=== PATIENT | female | born 1960 | race Caucasian/White ===

== ENCOUNTER → 2016-10-22 | Outpatient (CLI) | payer BC ==
[~2016-10-22] MED LIST: ALBUTEROL SULFAT3 M3 IH; ALLEGRA 60MG TA60 MG PO; ALLEGRA60 M1 PO; ALLEGRA60 MG PO; ATIVAN 0.50.5 MG/TAB PO; BROVANA15 MCG/2 M IH; COMPAZINE 110 MG/TAB PO; COUMADIN; COUMADIN 22.5 MG/TAB PO; COUMADIN2.5 MG PO; DETROL; DETROL LA4 PO; FLEXERIL10 MG PO; KLOR-CON M1010 MEQ PO; LORTAB 5/500 501 TAB PO; NEXIUM 40MG40 MG PO; OXYGEN; POTASSIUM AC PO; PREDNISONE20 MG PO; PREMARIN .3MG0.3 MG PO; SINGULAIR 110 MG/TAB PO; XARELTO15 MG PO; ZYLOPRIM 300MG300 MG PO
== END ==
LOC: MC.RAD 09:33
DX: Z12.31 Encounter for screening mammogram for malignant neoplasm of breast (principal)

== ENCOUNTER → 2017-11-14 | Outpatient (CLI) | payer BC | LOC: MC.RAD 08:40 | DX: Z12.31 Encounter for screening mammogram for malignant neoplasm of breast (principal) ==

== ENCOUNTER → 2018-12-01 | Outpatient (CLI) | payer BC | LOC: MC.RAD 11-27 09:30 | DX: Z12.31 Encounter for screening mammogram for malignant neoplasm of breast (principal) ==

== ENCOUNTER → 2019-12-03 | Outpatient (CLI) | payer BC | LOC: MC.RAD 09:27 | DX: Z12.31 Encounter for screening mammogram for malignant neoplasm of breast (principal) ==

== ENCOUNTER 2020-12-03 17:57 | Inpatient (IN) | payer SELFPAY ==
[~2020-12-03] VITALS: Ht 152.4 cm; Wt 56.2 kg
[2020-12-03 18:48] LABS: HEMATOCRIT 44.6 % (37.0-47.0); HEMOGLOBIN 14.9 g/dl (12.5-16.0); MEAN CELL VOLUME 87 fl (80.0-100.0); MEAN CORPUSCULAR HEMOGLOBIN 29 pg (27.0-31.0); MEAN CORPUSCULAR HGB CONC 33 g/dl (33.0-37.0); MEAN PLATELET VOLUME 10.8 fl (7.4-10.4); PLATELET COUNT 166 K/mm3 (130-400); RED BLOOD COUNT 5.11 M/mm3 (4.10-5.30); REDCELL DISTRIBUTION WIDTH-CV 12.6 % (11.5-14.5)
[2020-12-03 18:55] LABS: PROTHROMBIN TIME 33.5 SECONDS (9.7-12.8)
[2020-12-03 19:07] LABS: ALBUMIN 3.3 gm/dL (3.4-4.8); BILIRUBIN,TOTAL 1.7 mg/dL (0.2-1.2); CALCIUM 10.4 mg/dL (8.4-10.2); CREATININE, serum 0.84 mg/dL (0.57-1.11); TOTAL PROTEIN 7.9 gm/dL (6.2-8.1)
[2020-12-03 19:13] LABS: BAND 7 % (0-10); LYMPHOCYTE 7 % (20.0-51.0); NEUTROPHILS 82 % (42.0-75.2); TROPONIN-I 0.013 ng/mL (0.00-0.033)
[2020-12-03 19:16] LABS: PLATELET ESTIMATE NORMAL (NORMAL)
[2020-12-03 19:21] LABS: ARTERIAL BLD GAS O2 SATURATION 96.3 % (92-100); ARTERIAL BLD GAS TCO2 CT 31.3; ARTERIAL BLOOD GAS BASE EXCESS 4.2 (-2-2); ARTERIAL BLOOD GAS HCO3 29.8 meq/L (22-26); ARTERIAL BLOOD GAS PCO2 48.2 mmHg (35-45); ARTERIAL BLOOD GAS PO2 87.9 mmHg (80-100); ARTERIAL BLOOD GAS pH 7.41 (7.35-7.45)
[2020-12-03 20:53] LABS: COLLECTION METHOD CLEAN CATCH
[2020-12-03 21:01] LABS: MUCOUS Present /lpf; PH 6 (5-8); SQUAMOUS EPITHELIAL 0-2 /hpf; URINE APPEARANCE Clear; URINE BACTERIA None Seen /hpf; URINE BILIRUBIN Negative (NEGATIVE); URINE BLOOD 3+ (NEGATIVE); URINE COLOR Yellow; URINE GLUCOSE Negative (NEGATIVE); URINE KETONE Negative (NEGATIVE); URINE LEUKOCYTE ESTERASE Negative (NEGATIVE); URINE NITRATE Negative (NEGATIVE); URINE PROTEIN(semi-quant) 3+ (NEGATIVE); URINE RBC >50 /hpf; URINE UROBILINOGEN Negative (NEGATIVE)
[2020-12-03] MEDS ORDERED: PROVENTIL0.09 MG/A1 IH (22:59)
[2020-12-03] MEDS ORDERED: RT ADVAIR 228 DISKUS IH (23:00)
[2020-12-03] MEDS ORDERED: ALBUTEROL0.83 MG/ML IH (23:01)
[2020-12-03] MEDS ORDERED: COUMADIN 2MG2 MG/TAB PO (23:01)
[2020-12-03] MEDS ORDERED: COUMADIN 22.5 MG/TAB PO (23:02)
[2020-12-04] VITALS (14 sets, daily range): BP systolic 110–147; BP diastolic 55–84; PULSE 63–171; TEMP 97.8–98.2
--- NOTE | 2020-12-04 01:07 | NUR ---
REPORT RECEIVED FROM MIMI CAMPOS IN ED. PT ADMITTED TO MEDICAL FLOOR. DENIES ANY PAIN, C/O COUGH. PT OTHERWISE STABLE. NO FURTHER CONCERNS.
--- NOTE | 2020-12-04 01:18 | NUR ---
PT AMBULATED TO THE BATHROOM OFF OF THE 1L NC. PT TACHYCARDIC, WELL HYPOXIC; UPON RETURN TO BED, O2 SATS WERE 79%, INITIALLY TURNED O2 UP TO 5L TO ASSIST IN RECOVERY, PT IMMEDIATELY RECOVERED TO 98% O2 TITRATED DOWN TO 2L AND PATIENT SATURATIONS ARE AT 94%. CALL FROM TELEMETRY DURING AMBULATION TO BATHROOM STATED THAT HR WAS IN THE 140'S. NO OTHER CONCERNS AT THIS TIME. THIS RN WAS AT BEDSIDE DURING EPISODE, AND PATIENT DENIES ANY PAIN, JUST THE SHORTNESS OF BREATH.
--- NOTE | 2020-12-04 02:21 | NUR ---
PT SUSTAINING HEART RATES OF 160'S. JOHNSON NOTIFIED. ORDERED EKG STAT, TOLD PT TO BEAR DOWN WHILE HOLDING BREATH.
--- NOTE | 2020-12-04 06:15 | NUR ---
0235: TELEMETRY CALLED TO INFORM RN OF SUSTAINED HR IN THE 160'S. CALLED YEE ORNELAS. JOHNSON ORDERED STAT EKG. 0240: YEE ORNELAS ORDERED 10MG CARDIZEM BOLUS WELL A CARDIZEM GTT TO BE BROUGHT UP BY CABINET ABRASIVE SANDBLASTER MIMI DUQUE. 0248: CARDIZEM BOLUS GIVEN, CARDIZEM GTT STARTED AT 5MG/HR. 0259: BP 117/81 HR 169. YEE ORNELAS NOTIFIED, CARDIZEM BOLUS OF 10MG ORDERED, GTT ORDERED TO INCREASE TO 10MG/HR. 0330: BP 111/74 HR 169. YEE ORNELAS NOTIFIED OF SUSTATINED HR, SHE ORDERED CARDIZEM GTT INCREASE TO 15MG/HR. 0345: BP 121/70 HR 169 SUSTAINING; 0.5MG DIGOXIN ORDERED PER YEE ORNELAS. 0407: 0.5MG DIGOXIN GIVEN. 0415: 147/84 HR 165 REMAINED SUSTAINED. 0430: YEE ORNELAS ORDERED LOPRESSOR 5MG X3. 0440: INITIAL DOSE OF LOPRESSOR GIVEN. 0445: 2ND DOSE OF LOPRESSOR GIVEN. 0453: 3RD DOSE OF LOPRESSOR GIVEN. 0540: PT CONVERTED BACK TO NSR. 0615: 130/74 HR 81
[2020-12-04 06:44] LABS: HEMATOCRIT 41.2 % (37.0-47.0); MEAN CELL VOLUME 87 fl (80.0-100.0); MEAN CORPUSCULAR HEMOGLOBIN 30 pg (27.0-31.0); MEAN CORPUSCULAR HGB CONC 34 g/dl (33.0-37.0); MEAN PLATELET VOLUME 10.9 fl (7.4-10.4); PLATELET COUNT 180 K/mm3 (130-400); RED BLOOD COUNT 4.72 M/mm3 (4.10-5.30); REDCELL DISTRIBUTION WIDTH-CV 12.6 % (11.5-14.5)
[2020-12-04 07:14] LABS: CALCIUM 9.5 mg/dL (8.4-10.2); CREATININE, serum 0.72 mg/dL (0.57-1.11); MAGNESIUM 2.6 mg/dL (1.6-2.6); POTASSIUM 4.7 mmol/L (3.5-4.5)
[2020-12-04 07:48] LABS: INR 2.6 (0.8-3.0); PROTHROMBIN TIME 29.1 SECONDS (9.7-12.8)
[2020-12-04 07:55] LABS: TSH w REFLEX 0.22 uIU/mL (0.350-4.940)
[2020-12-04 08:18] LABS: BAND 19 % (0-10); LYMPHOCYTE 4 % (20.0-51.0); NEUTROPHILS 73 % (42.0-75.2); PLATELET ESTIMATE NORMAL (NORMAL)
--- NOTE | 2020-12-04 10:23 | NUR ---
Pt assessment complete. Pt is sitting up in bed upon entry, she is A/O x4. Her breathing is even and unlabored on 2L O2. She denies any increased SOB or productive cough. Pt denies any chest pain or palpitations. Discussed POC and heart rhythm with patient and her , pt back in Aflutter HR controlled. Physicians notified. Cardizem infusing per protocol. No needs at this time. Call light within reach.
--- NOTE | 2020-12-04 10:54 | NUR ---
GABRIEL met with the patient and her , Finesse (ph#[phone]), to discuss discharge plan. The patient lives in [place] with her . She reports independence with ADLs and does not have any DME. The patient's PCP is Dr. Jeronimo Edwards and she receives her medications from [facility]. She reports no difficulties obtaining her meds. The patient confirms that she is self pay. SW consulted financial counseling. The patient's DPOA-HC is in EMR and it designates her . The patient plans to return home with her upon discharge. She is currently on 2 liters of oxygen. SW to continue to monitor. *Discharge plan: home with *
[2020-12-04 18:21] LABS: CALCIUM 6.4 mg/dL (8.4-10.2); CREATININE, serum 0.53 mg/dL (0.57-1.11); MAGNESIUM 1.8 mg/dL (1.6-2.6)
[2020-12-04 18:26] LABS: POTASSIUM 2.9 mmol/L (3.5-4.5)
--- NOTE | 2020-12-04 23:00 | NUR ---
PT AWAKE AND LAYING IN BED. STATED SHE NEEDED TO GO TO THE RESTROOM. THIS RN ASSISTED PT TO BATHROOM. CHECKED OXYGEN LEVELS, STAYED AROUND 85%. GOT PT BACK IN BED, TURNED 02 TO 4 L TO RETURN OXYGEN FASTER. PT WILL BE TITRATED BACK DOWN AFTER RESTING FOR A BIT. PT STATES NO PAIN. PT ASKED QUESTIONS ABOUT WHY SHE WILL BE NPO AT MIDNIGHT, THIS RN EXPLAINED THAT SHE IS SCHEDULED FOR CARDIOVERSION/HAILEE TOMORROW AND THE PURPOSE OF BEING NPO. PT UNDERSTOOD. CALL LIGHT IN PLACE. NO OTHER NEEDS AT THIS TIME.
[2020-12-05] VITALS (10 sets, daily range): BP systolic 94–132; BP diastolic 43–64; PULSE 58–89; TEMP 97.5–98.4
--- NOTE | 2020-12-05 05:51 | NUR ---
PT HAD REQUESTED EXTRA BLANKETS THROUGHOUT NIGHT, DID NOT REMOVE FOR DAILY WEIGHT.
--- NOTE | 2020-12-05 06:11 | NUR ---
PT REMAINED SITTING UP ALL NIGHT, SLEPT PART OF NIGHT SITTING UP WELL. PT BREATHING IMPROVED AFTER SOME BREATHING TREATMENTS. PT EXPRESSED SOME ANXIETY ABOUT NOT BEING ABLE TO BREATH, BUT WAS ABLE TO RELAX SELF. PT IS NPO SINCE MIDNIGHT. PT HAS BEEN PLEASANT AND COMPLIANT TO ALL MEDICATIONS AND TREATMENTS. PT STATES SHE IS A LIGHT SLEEPER AND HASN'T SLEPT WELL TONIGHT. CALL LIGHT IS IN REACH, NO NEEDS AT THIS TIME.
--- NOTE | 2020-12-05 06:27 | NUR ---
THIS RN RETOOK WEIGHT WITHOUT BLANKETS TO TRY TO GET MORE ACCURATE WEIGHT.
[2020-12-05 07:46] LABS: CALCIUM 8.7 mg/dL (8.4-10.2); CREATININE, serum 0.75 mg/dL (0.57-1.11); MAGNESIUM 2.6 mg/dL (1.6-2.6); POTASSIUM 4.5 mmol/L (3.5-4.5)
--- NOTE | 2020-12-05 11:25 | NUR ---
PT SITTING UP IN BED. MORNING MEDICATIONS GIVEN. SHIFT ASSESSMENT COMPLETED. PT WEARING 2L NC. HAS BEEN NPO FOR PROCEDURE TODAY. WILL CONTINUE TO MONITOR.
--- NOTE | 2020-12-05 22:02 | NUR ---
PT SITTING BEDSIDE AND DENIES ANY PAIN. PT STATES STILL SOB DURING SHORT PERIODS OF MOVEMENT. PT STILL COMPLAINS OF COUGH THAT INCREASES SOB. PT ASKED ABOUT THE NEED FOR CONTINUING NS FLUID INTAKE. COMPLAINS OF FEELING BLOATED. CALL LIGHT IN REACH. NO OTHER NEEDS
[2020-12-06 00:18] VITALS: BP 102/51; PULSE 64; TEMP 98.2
[2020-12-06 04:53] VITALS: BP 114/68; PULSE 78; TEMP 97.8
--- NOTE | 2020-12-06 05:33 | NUR ---
PT HAS BEEN PLEASANT ALL NIGHT. NORMAL SINUS ALL NIGHT WITH CONTROLLED RATE. PT UNABLE TO SLEEP WELL DUE TO COUGH AND DIFFERENT TIMINGS FOR MEDICATIONS. PT ASKED ABOUT HOW LONG TO EXPECT TO BE ADMITTED, AND ASKED ABOUT CONSTANT FLUID INFUSING DUE TO FEELING FULL AND BLOATED. PT STATES THAT SHE DOESN'T DRINK THAT MUCH OR EAT THAT MUCH AND THAT THIS IS A NEW THING FOR HER. PT IS ABLE TO WALK TO RESTROOM WITHOUT INCREASE NEED FOR OXYGEN, CURRENTLY ON 2 L VIA NC. CALL LIGHT IN REACH, NO NEEDS AT THIS TIME.
[2020-12-06 07:18] LABS: CALCIUM 8.5 mg/dL (8.4-10.2); CREATININE, serum 0.67 mg/dL (0.57-1.11); MAGNESIUM 2.5 mg/dL (1.6-2.6); POTASSIUM 4.2 mmol/L (3.5-4.5)
[2020-12-06 07:19] VITALS: BP 113/58; PULSE 54; TEMP 98.2
[2020-12-06 08:37] LABS: INR 4.3 (0.8-3.0); PROTHROMBIN TIME 48.3 SECONDS (9.7-12.8)
--- NOTE | 2020-12-06 08:38 | NUR ---
Critical PT and INR called to [facility].
--- NOTE | 2020-12-06 09:43 | NUR ---
Scheduled medication given. Shift assessment preformed. Patient currently requiring 2L of O2 via nasal cannula. Dyspnea at rest. Lung sounds diminished in all field. Dry cough noted. Patient denies any chest pain, chest tightness, or any further needs at this time. Yousif contacted regarding QTC and tykosin, dose change, cardizem gtt DC'd. Call light in reach. VSS. Patient A&O.
[2020-12-06 12:33] VITALS: BP 116/64; PULSE 78; TEMP 97.8
[2020-12-06 16:29] VITALS: BP 112/59; PULSE 68; TEMP 98.1
--- NOTE | 2020-12-06 17:00 | NUR ---
Patient had an ok day. Currently requiring 2L of O2 via nasal cannula. Denies any chest pain, chest tightness, pain or discomfort. at the bedside. Bedside commade placed by patient due to IV Lasix. Patient denies any further needs at this time. VSS. Patient A&O. Call light in reach.
--- NOTE | 2020-12-06 18:00 | NUR ---
ALISHA CONTACTED REGARDING ELEVATED QTC FOLLOWING TIKOSYN. STATES THAT HE IS NOT CONCERNED UNTIL IT IS OVER 500. WILL PASS THIS ON TO [facility].
[2020-12-06 19:17] VITALS: BP 138/53; PULSE 81; TEMP 97.9
--- NOTE | 2020-12-06 19:52 | NUR ---
Called medication assistant [employer]iz[employer] Consultant Krysta Jarvis about tikosyn administration with last QTc 478 (base is 450 , 15% is 467), stated it is ok to provide tikosyn med.
--- NOTE | 2020-12-06 22:00 | NUR ---
Patient is resting in bed, alert and oriented, VSS, tele in place. 2L O2. Denies SOB, pain, nausea or vomiting. Assessment completed, meds provided. No further needs at this time. Call ligtht within reach.
--- NOTE | 2020-12-07 00:15 | NUR ---
Report given to Layne.
[2020-12-07 00:47] VITALS: BP 129/53; PULSE 79; TEMP 98.3
--- NOTE | 2020-12-07 01:22 | NUR ---
Resting quietly, denies pain, tolerating prescribed treatment, call garcia w/i reach, isolation continues, no s/s of hypo/hyper glycemia, c/o no sleep while being in the hospital.
[2020-12-07 03:36] VITALS: BP 131/64; PULSE 69; TEMP 98.2
[2020-12-07 06:39] LABS: MEAN CELL VOLUME 90 fl (80.0-100.0); MEAN CORPUSCULAR HGB CONC 32 g/dl (33.0-37.0); MEAN PLATELET VOLUME 9.8 fl (7.4-10.4); PLATELET COUNT 196 K/mm3 (130-400); RED BLOOD COUNT 3.93 M/mm3 (4.10-5.30); REDCELL DISTRIBUTION WIDTH-CV 13.2 % (11.5-14.5)
[2020-12-07 07:01] LABS: ALBUMIN 2.5 gm/dL (3.4-4.8); CALCIUM 8.7 mg/dL (8.4-10.2); CREATININE, serum 0.72 mg/dL (0.57-1.11); PHOSPHOROUS 2.9 mg/dL (2.3-4.7); POTASSIUM 4.1 mmol/L (3.5-4.5)
[2020-12-07 07:03] LABS: HEMATOCRIT 35.4 % (37.0-47.0); MEAN CORPUSCULAR HEMOGLOBIN 29 pg (27.0-31.0)
[2020-12-07 07:05] LABS: HEMOGLOBIN 11.4 g/dl (12.5-16.0)
--- NOTE | 2020-12-07 07:44 | NUR ---
NOTIFIED DR. MCINTOSH THAT QTC WAS 510 AFTER DOSE LAST NIGHT, DR. MCINTOSH ORDERED TO STILL GIVEN 250MCG DOSE
--- NOTE | 2020-12-07 07:58 | NUR ---
ALONZO GARCIA NOTIFIED OF DECREASE IN HEMOGLOBIN, NEW H&H ORDERED TO RECHECK
[2020-12-07 08:17] LABS: INR 4.7 (0.8-3.0)
[2020-12-07 08:20] LABS: PROTHROMBIN TIME 52.7 SECONDS (9.7-12.8)
[2020-12-07 08:22] LABS: CALCIUM 8.7 mg/dL (8.4-10.2); CREATININE, serum 0.73 mg/dL (0.57-1.11); MAGNESIUM 2.4 mg/dL (1.6-2.6); POTASSIUM 4.1 mmol/L (3.5-4.5)
[2020-12-07 08:24] VITALS: BP 114/64; PULSE 84; TEMP 98.4
[2020-12-07 08:43] LABS: HEMATOCRIT 37.6 % (37.0-47.0)
[2020-12-07 08:48] LABS: HYPOCHROMIA 1+; LYMPHOCYTE 4 % (20.0-51.0); NEUTROPHILS 85 % (42.0-75.2); PLATELET ESTIMATE NORMAL (NORMAL)
--- NOTE | 2020-12-07 09:00 | NUR ---
ASSESSMENT COMPLETE. PT COOPERATIVE WITH CARES. PT DENIES PAIN, PALPTATIONS OR DIZZINESS. PT HAS NO NEEDS AT THIS TIME. CALL LIGHT WITHING REACH.
[2020-12-07 11:58] VITALS: BP 120/54; PULSE 65; TEMP 98.2
--- NOTE | 2020-12-07 14:05 | NUR ---
An exercise oximetry was ordered. RT notified SW that the patient qualified for 2 liters. The PA then notified SW that the irrigation manager would like to keep the patient for at least another day. SW contacted Siena, Financial Counselor, to follow up on the FAA. Siena reports that she contacted the patient's to complete the FAA, but they declined the FAA. He informed her that they are apart of the program, [employer]. SW contacted the patient's , Finesse, to follow up and review discharge plan. Finesse states that plan is still for the patient to return home with him upon discharge. SW notified Finesse how the patient did qualify for oxygen and where she could obtain the oxygen. Finesse is in agreement to getting the oxygen from [facility]. He confirms that they are apart of [employer]. He states that they will pay for the oxygen up front and then [employer] will reimburse them. SW to continue to follow. *Discharge plan: home with *
[2020-12-07 15:33] VITALS: BP 118/57; PULSE 64; TEMP 98.1
--- NOTE | 2020-12-07 17:54 | NUR ---
PT EATING DINNER WHILE WATCHING TV, WITH BY HER SIDE. PT'S O2 SATS IN UPPER 90% ALL DAY ON 2L VIA NC. I REDUCED PT'S O2 TO 1L VIA NC. PT IS MAINTAINING O2 STATS AT THAT LEVEL. PT FELT PHYSICAL THERAPY WENT WELL TODAY. PT DISPLACED INT TO LEFT HAND. INT TO LEFT FOREARM REMAINS INTACT. PT HAD A RELATIVELY UNEVENFUL DAY TODAY. PT DENIES PAIN AND STATES ALL HER NEEDS ARE MEET AT THIS TIME. CALL LIGHT WITHIN REACH.
[2020-12-07 20:08] VITALS: BP 136/60; PULSE 68; TEMP 98.2
--- NOTE | 2020-12-07 21:50 | NUR ---
Patient is resting in bed, alert and oriented x 4, VSS, denies pain, nausea, vomiting or SOA. Currently at [address] L [address] Tele in place NSR. Last QTc 468. Assessment completed, meds provided. No further needs at this time. Call light within reach.
[2020-12-08] VITALS (7 sets, daily range): BP systolic 104–129; BP diastolic 52–62; PULSE 49–67; TEMP 97.8–98.1
--- NOTE | 2020-12-08 | NUR ---
Patient asks for something to sleep. Contacted hospitalist. Melatonin added to EMAR. Te be provided.
[2020-12-08 05:32] LABS: HEMATOCRIT 38.2 % (37.0-47.0); HEMOGLOBIN 12.4 g/dl (12.5-16.0); MEAN CELL VOLUME 90 fl (80.0-100.0); MEAN CORPUSCULAR HEMOGLOBIN 29 pg (27.0-31.0); MEAN CORPUSCULAR HGB CONC 33 g/dl (33.0-37.0); MEAN PLATELET VOLUME 9.6 fl (7.4-10.4); PLATELET COUNT 193 K/mm3 (130-400); RED BLOOD COUNT 4.27 M/mm3 (4.10-5.30); REDCELL DISTRIBUTION WIDTH-CV 12.9 % (11.5-14.5)
[2020-12-08 05:39] LABS: INR 3.2 (0.8-3.0)
[2020-12-08 05:46] LABS: ALBUMIN 2.8 gm/dL (3.4-4.8); BILIRUBIN,TOTAL 0.7 mg/dL (0.2-1.2); CALCIUM 8.9 mg/dL (8.4-10.2); CREATININE, serum 0.76 mg/dL (0.57-1.11); MAGNESIUM 2.4 mg/dL (1.6-2.6); POTASSIUM 3.9 mmol/L (3.5-4.5); TOTAL PROTEIN 5.6 gm/dL (6.2-8.1)
[2020-12-08 05:50] LABS: BAND 11 % (0-10); HYPOCHROMIA 1+; LYMPHOCYTE 1 % (20.0-51.0); NEUTROPHILS 87 % (42.0-75.2); PLATELET ESTIMATE NORMAL (NORMAL)
--- NOTE | 2020-12-08 06:35 | NUR ---
Patient has been stable along the night. She asked for something to sleep. Melatonin provided. All needs met. Shift report will be given to day RN.
[2020-12-08] MEDS ORDERED: TIKOSYN0.25 MG PO ×2 (10:29)
[2020-12-08] MEDS ORDERED: MUCUS RELIEF400 M1 PO (10:30)
[2020-12-08] MEDS ORDERED: OMNICEF 300MG300 MG PO (10:30)
--- NOTE | 2020-12-08 10:32 | NUR ---
PT SITTING IN BED EAT BREAKFAST WITH BY HER SIDE. MORNING MEDS GIVEN. ASSESSMENT COMPLETED. PT HAD SOME QUESTIONS ABOUT CUTTING HER BIGGER PILLS AND ABOUT WHY DIETARY SAID SHE COULD NOT HAVE SALT. CONCERNS ADDRESSED AND PASSED ON TO PA AND PHYSICIAN. PT DENIES N/V, PAIN, PALPITATIONS AND DIZZINESS. PT COOPERATIVE WITH CARES. PT STATES SHE HAS NO OTHER NEEDS AT THIS TIME. CALL LIGHT WITHIN REACH.
[2020-12-08] MEDS ORDERED: PREDNISONE10 MG PO (10:33)
[2020-12-08] MEDS ORDERED: IPRATROPIUM BROM3 M1 IH (11:14)
[2020-12-08] MEDS ORDERED: TIKOSYN0.125 MG PO (12:00)
--- NOTE | 2020-12-08 12:02 | NUR ---
QTC RESULTED 574. KAILA GARCIA NOTIFIED, CUTTING DOSE OF TIKOSYN IN HALF AND WANTING TO MONITOR OVERNIGHT. NOTIFIED ALONZO GARCIA, AGREEABLE TO PLAN. NOTIFIED PT AND PT AT BEDSIDE, EXTENSIVELY EXPLAINED REASON FOR STAYING ONE MORE NIGHT, PT TEARFUL BUT AGREEABLE.
--- NOTE | 2020-12-08 12:48 | NUR ---
The hospitalist and pulm are ready to discharge the patient today. GABRIEL contacted and faxed and emailed the patient's oxygen order to Kristy at [facility]. Messi, at [facility], reports that the patient's order will be ready for chart picker at 1330. GABRIEL met with the patient and her , Finesse, and provided them with an update. Finesse reports that he can chart picker the oxygen. He and his had questions about billing. GABRIEL provided with the 800 number to billing. The patient's RN then notified GABRIEL that the patient's QTC results came back 574. Cardiology wants to monitor the patient overnight. [facility] will need a new exercise oximetry prior to dc. GABRIEL updated the patient's RN. GABRIEL met with the patient and her and updated them. The patient's verbalized understanding. GABRIEL updated Pb at [facility]. Pb reports that the aids social worker tomorrow will just need to contact their regional geodetic advisorsalesperson books tomorrow and send them the new exercise ox, when the patient is ready to discharge. *Discharge plan: home with *
--- NOTE | 2020-12-08 17:39 | NUR ---
PT HAD AN OVERALL GOOD DAY. PT WAS VERY UP BEAT THIS MORNING. PT WAS LOOKING FORWARD TO D/Cing HOME. HOWEVER, PT'S QTc CAME BACK HIGH, SO PT'S TIKOSYN WAS CUT IN HALF AND SHE HAS TO STAY ANOTHER NIGHT. PT BECAME A BIT TEARFUL, BUT AGREED WITH CHANGE IN POC. BY THIS EVENING, PT WAS IN A MUCH BETTER MOOD, AND BACK TO BEING MORE UP BEAT AGAIN. PT DENIES PAIN OR ANY OTHER NEEDS AT THIS TIME. CALL LIGHT WITHIN REACH.
--- NOTE | 2020-12-08 20:00 | NUR ---
Report received, assumed care for night supervisor. Assessment complete. A&Ox4. Denies pain/nausea. States she gets short of air with activity only and uses pursed lip breathing. O2@2L/NC. Tele reporting SR with BBB. Left forearm INT flushes without difficulty. Noted to have bilat insp/exp wheezes in all choudhary. Plan of care discussed for this shift to include medications/EKG/callng for questions/concerns. Verbalizes understanding/denies needs. Call light in reach. Will monitor.
--- NOTE | 2020-12-08 21:30 | NUR ---
Patient reporting dark stools. States it look similiar to the stools she had when she had a GI bleed. Verbalizing concern about restarting her coumadin. Discussed latest INR results. Notified hospitalist JOSE Aggarwal-states okay to hold coumadin tonight and collect a stool specimen. Discussed with patient and will notify when has a bowel movement.
[2020-12-09 02:45] VITALS: BP 119/53; PULSE 64; TEMP 97
[2020-12-09 07:32] VITALS: BP 129/50; PULSE 81; TEMP 98
--- NOTE | 2020-12-09 08:21 | NUR ---
Pt assessment complete. Pt sitting up in bed upon entry, she is A/O x4. Her breathing is even and unlabored on RA. Pt has intermittent wet cough with no production. Denies any pain. No N/V/D. Up independently to the restroom. No needs at this time. Call light within reach.
[2020-12-09 09:21] LABS: HEMATOCRIT 40.6 % (37.0-47.0); MEAN CELL VOLUME 90 fl (80.0-100.0); MEAN CORPUSCULAR HEMOGLOBIN 29 pg (27.0-31.0); MEAN CORPUSCULAR HGB CONC 32 g/dl (33.0-37.0); MEAN PLATELET VOLUME 10.2 fl (7.4-10.4); PLATELET COUNT 250 K/mm3 (130-400); RED BLOOD COUNT 4.53 M/mm3 (4.10-5.30); REDCELL DISTRIBUTION WIDTH-CV 12.9 % (11.5-14.5)
[2020-12-09 09:25] LABS: INR 2.2 (0.8-3.0)
[2020-12-09 09:44] LABS: CALCIUM 9.2 mg/dL (8.4-10.2); CREATININE, serum 0.66 mg/dL (0.57-1.11); MAGNESIUM 2.5 mg/dL (1.6-2.6); POTASSIUM 4.5 mmol/L (3.5-4.5)
--- NOTE | 2020-12-09 10:34 | NUR ---
GABRIEL update: Patient need oxygen order. GABRIEL faxed ORder to [facility] at 10:31 a.m. Dariusz from [facility] called back and stated that he has recieved bail bond agent and will review information and get back to us on delivery time. WF>
[2020-12-09 11:27] LABS: BAND 3 % (0-10); LYMPHOCYTE 5 % (20.0-51.0); NEUTROPHILS 84 % (42.0-75.2)
[2020-12-09 11:40] LABS: PLATELET ESTIMATE NORMAL (NORMAL)
[2020-12-09 11:54] VITALS: BP 134/55; PULSE 66; TEMP 98.3
--- NOTE | 2020-12-09 12:32 | NUR ---
Refaxed orders to [facility] for Oxygen. 12:15 pm.
[2020-12-09] MEDS ORDERED: MAG-OX 400400 MG/TAB PO (12:58)
--- NOTE | 2020-12-09 14:30 | NUR ---
Discharge paperwork and instructions reviewed with patient. All questions answered at this time. IV to LFA dc'd catheter tip intact. Oxygen at bedside. Pt wheeled out of facility at this time.
== END 2020-12-09 14:45 | disposition home health service (06) | DRG 189 ==
LOC: COL.ER 17:57 → MEDICAL 19:48 → SURG 12-08 10:30 → MEDICAL 12-08 10:30
PROVIDERS: Internal Medicine; Internal Medicine Interventional Cardiology; Internal Medicine Sleep Medicine; Nurse Practitioner Family; Personal Emergency Response Attendant; Physician Assistant; ADMIT Family Medicine
DX: J96.01 Acute respiratory failure with hypoxia (principal); J45.901 Unspecified asthma with (acute) exacerbation; I50.32 Chronic diastolic (congestive) heart failure; E87.1 Hypo-osmolality and hyponatremia; I48.92 Unspecified atrial flutter; F41.9 Anxiety disorder, unspecified; E83.52 Hypercalcemia; T48.6X6A Underdosing of antiasthmatics, initial encounter; E87.8 Other disorders of electrolyte and fluid balance, not elsewhere classified; R73.9 Hyperglycemia, unspecified; I48.91 Unspecified atrial fibrillation; B97.4 Respiratory syncytial virus as the cause of diseases classified elsewhere; B95.3 Streptococcus pneumoniae as the cause of diseases classified elsewhere; E87.6 Hypokalemia; Z86.73 Personal history of transient ischemic attack (TIA), and cerebral infarction without residual deficits; Z79.01 Long term (current) use of anticoagulants; Z85.72 Personal history of non-Hodgkin lymphomas; Z91.138 Patient's unintentional underdosing of medication regimen for other reason; Z86.711 Personal history of pulmonary embolism; Z20.822 Contact with and (suspected) exposure to COVID-19
CPT/HCPCS: 99223-AI; 99232-AI; 99233-AI; 99239; A9284; J0692; J0696; J1100; J1160; J1815; J1940; J2704; J2920; J3010; J7030; Q9967

== ENCOUNTER → 2021-01-26 | Outpatient (CLI) | payer SELFPAY ==
[~2021-01-26] MED LIST changes: +ALBUTEROL0.83 MG/ML IH; +COUMADIN 2MG2 MG/TAB PO; +IPRATROPIUM BROM3 M1 IH; +MAG-OX 400400 MG/TAB PO; +MUCUS RELIEF400 M1 PO; +OMNICEF 300MG300 MG PO; +PREDNISONE10 MG PO; +PROVENTIL0.09 MG/A1 IH; +RT ADVAIR 228 DISKUS IH; +TIKOSYN0.125 MG PO; +TIKOSYN0.25 MG PO
== END ==
LOC: MC.RAD 10:45
DX: Z12.31 Encounter for screening mammogram for malignant neoplasm of breast (principal)

== ENCOUNTER → 2021-02-21 | Outpatient (CLI) | payer SELFPAY ==
[2021-02-21 08:17] LABS: ARTERIAL BLD GAS O2 SATURATION 94.8 % (92-100); ARTERIAL BLD GAS TCO2 CT 28.9; ARTERIAL BLOOD GAS BASE EXCESS 2.6 (-2-2); ARTERIAL BLOOD GAS HCO3 27.6 meq/L (22-26); ARTERIAL BLOOD GAS PCO2 43.8 mmHg (35-45); ARTERIAL BLOOD GAS PO2 72.4 mmHg (80-100); ARTERIAL BLOOD GAS pH 7.42 (7.35-7.45)
== END ==
LOC: COL.PUL 07:14
PROVIDERS: Internal Medicine Pulmonary Disease
DX: R06.02 Shortness of breath (principal)

== ENCOUNTER → 2021-04-09 | Outpatient (RCR) | payer SELFPAY | END | disposition home or self-care (01) | LOC: WSST | DX: R49.0 Dysphonia (principal) ==

== ENCOUNTER 2021-06-04 09:45 | Outpatient (RCR) | payer SELFPAY ==
[~2021-06-04 09:45] MED LIST changes: +DITROPAN 5MG TAB5 MG PO; +RT ADVAIR HFA 1112 G IH
== END 2021-06-09 | disposition home or self-care (01) ==
LOC: WSST
DX: R49.0 Dysphonia (principal)

== ENCOUNTER 2021-06-12 13:43 | Outpatient (RCR) | payer SELFPAY ==
[2021-06-15] MEDS ORDERED: TRELEGY ELLIPT1 EACH IH (10:26)
== END 2021-07-10 | disposition home or self-care (01) ==
LOC: WSST
DX: R49.0 Dysphonia (principal)

== ENCOUNTER → 2021-06-15 | Outpatient (CLI) | payer SELFPAY ==
[~2021-06-15] VITALS: Ht 152.4 cm; Wt 53.9 kg
[~2021-06-15] MED LIST changes: +TRELEGY ELLIPT1 EACH IH
[2021-06-15 10:30] VITALS: BP 138/80; PULSE 64; TEMP 97.4
[2021-06-15 11:39] VITALS: BP 133/76; PULSE 59
[2021-06-15 11:40] VITALS: BP 129/76; PULSE 112
[2021-06-15 11:42] VITALS: BP 132/79; PULSE 108
[2021-06-15 11:43] VITALS: BP 128/77; PULSE 106
[2021-06-15 11:44] VITALS: BP 121/73; PULSE 99
== END ==
LOC: COL.CARD 05-25 10:45
DX: R94.39 Abnormal result of other cardiovascular function study (principal); R06.02 Shortness of breath
CPT/HCPCS: A9500; J2785

== ENCOUNTER 2021-07-20 11:07 | Day surgery (SDC) | payer SELFPAY ==
[~2021-07-20] VITALS: Ht 152.4 cm; Wt 52.3 kg
[2021-07-20] VITALS (9 sets, daily range): BP systolic 88–121; BP diastolic 52–71; PULSE 68–80; TEMP 97.8
[2021-07-20 12:00] LABS: HEMATOCRIT 46.9 % (37.0-47.0); HEMOGLOBIN 15.5 g/dl (12.5-16.0); MEAN CELL VOLUME 90 fl (80.0-100.0); MEAN CORPUSCULAR HEMOGLOBIN 30 pg (27-31); MEAN CORPUSCULAR HGB CONC 33 g/dl (33.0-37.0); MEAN PLATELET VOLUME 9.5 fl (7.4-10.4); PLATELET COUNT 175 K/mm3 (130-400); RED BLOOD COUNT 5.24 M/mm3 (4.10-5.30); REDCELL DISTRIBUTION WIDTH-CV 12.5 % (11.5-14.5)
[2021-07-20] MEDS ORDERED: PREMARIN VAG42.5 GM VG (12:07)
[2021-07-20 12:12] LABS: INR 1.1 (0.8-3.0); PARTIAL THROMBOPLASTIN TIME 33.4 SECONDS (26.0-37.0); PROTHROMBIN TIME 12.3 SECONDS (9.7-12.8)
[2021-07-20 12:14] LABS: CREATININE, serum 0.87 mg/dL (0.57-1.11); POTASSIUM 3.9 mmol/L (3.5-4.5)
--- NOTE | 2021-07-20 13:03 | NUR ---
Initial visit; Patient and her thanked Knot Borer for offering memories, encouragement and prayer prior to her Heart Catherization. Knot Borer left her with a smile.
--- NOTE | 2021-07-20 13:58 | NUR ---
See merge for all medication, assessment, intervention, and vital sign times.
--- NOTE | 2021-07-20 14:45 | NUR ---
Pt back to express from cathode maker, report received from Edison LE. Pt is awake and alert, pwd with reg and unlabored respirations. TR band to rt wrist, some numbness to fingers distal, cap refill <3 sec. Pt updated on poc, tele initiated, call light in reach, lunch ordered. wctm.
--- NOTE | 2021-07-20 18:12 | NUR ---
Pt ready for departure at this time. Pt did well during her recovery. TR band has been deflated and site dressed with bandaid, folded 2x2 and coban. I have reviewed dc/rx and fu instructions with pt and who both verbalize understanding. Pt has been up and is steady on her feet, no dizziness etc. IV is dc'd with cath intact, dressing is applied. Pt is escorted to exit via wheelchair.
== END 2021-07-20 18:46 | disposition home or self-care (01) ==
LOC: COL.CAR 11:07
PROVIDERS: Internal Medicine Interventional Cardiology
DX: I25.119 Atherosclerotic heart disease of native coronary artery with unspecified angina pectoris (principal); I48.0 Paroxysmal atrial fibrillation
CPT/HCPCS: C1769; C1887; J0461; J1644; J2250; J3010; Q9967